=== PATIENT | male | born 1975 | race Caucasian/White ===

== ENCOUNTER 2023-05-27 21:16 | Emergency (ER) | payer MEDICAID, SELFPAY ==
[2023-05-27 21:23] VITALS: BP 168/102; PULSE 91; RESP 18; TEMP 37.1; O2SAT 97; BMI 32.1
[2023-05-27 21:27] VITALS: BP 168/115; O2SAT 98
[2023-05-27 21:29] VITALS: BP 172/117; PULSE 91; RESP 21; O2SAT 97
[2023-05-27 21:30] VITALS: BP 168/113; PULSE 93; RESP 20; O2SAT 98
--- NOTE | 2023-05-27 21:33 | ECG_ITS ---
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
[2023-05-27 21:46] LABS: Basophils Absolute Auto 0.1 10^3/uL (0.0-0.1); Basophils Percent Auto 0.8 % (0.2-2.0); Eosinophils Absolute Auto 0.4 10^3/uL (0.0-0.7); Eosinophils Percent Auto 3.3 % (0.9-7.0); Hematocrit 41.8 % (42.0-54.0); Hemoglobin 14.8 g/dL (14.0-18.0); Immature Granulocytes Abs Auto 0.04 10^3/uL (0.00-0.03); Immature Granulocytes Pct Auto 0.3 % (0.0-0.5); Mean Corpuscular HGB Conc 35.4 g/dL (29.9-35.2); Mean Corpuscular Hemoglobin 30.8 pg (25.9-34.0); Mean Corpuscular Volume 86.9 fL (80.0-94.0); Mean Platelet Volume 10.4 fL (9.5-13.5); Monocytes Absolute Auto 0.9 10^3/uL (0.3-0.8); Monocytes Percent Auto 7.1 % (1.7-12.0); Neutrophils Absolute Auto 7.6 10^3/uL (1.4-6.5); Neutrophils Percent Auto 63.5 % (43.0-75.0); Platelet Count 250 10^3/uL (150-450); Red Blood Count 4.81 10^6/uL (4.70-6.10); Red Cell Distribution Width 13.1 % (11.0-15.0)
--- NOTE | 2023-05-27 21:47 | ED.GENADUL1 ---
HPI - General Adult General Chief complaint: Headache Stated complaint: HEADACHE, HIGH BP Time Seen by Provider: 05/27/23 21:21 Source: patient and family Mode of arrival: walk-in Limitations: no limitations History of Present Illness HPI narrative: Patient presents with pain to the top of the head that began yesterday. He denied any associated symptoms except for some mild nasal congestion which began about a week ago. He took some ibuprofen around 1pm today. He has been off of his meds for high blood pressure for about 6 months, he said. He used to take Lisinopril and a water pill . He said that he stopped on his own because I did not want to take them anymore. No visual changes, ear pain, sore throat, cough, chest pain or shortness of breath. no GI or symptoms. He does not know the doses of his medications. Related Data Home Medications Medication Instructions Recorded Confirmed No Known Home Medications 05/27/23 05/27/23 Allergies Allergy/AdvReac Type Severity Reaction Status Date / Time No Known Drug Allergies Allergy Verified 05/27/23 21:23 [facility] Social History Smoking status: Never smoker Exam Narrative Exam Narrative: Nurses notes and vital signs reviewed and patient is not hypoxic. afebrile General: Well-appearing and in no apparent distress. Skin: Warm, dry, no pallor noted. No rash. Head: Normocephalic, atraumatic. Neck: Supple, non-tender. No cervical lymphadenopathy. No meningismus. Eye: Pupils are equal, round and EOMI. No scleral icterus. Ears, Nose, Mouth, and Throat: TM are clear, no posterior oropharynx erythema or nasal mucosal hypertrophy, uvula is mid-line Oral mucosa is moist Cardiovascular: Regular Rate and Rhythm without murmur, gallop or rub. Respiratory: No accessory muscle use or respiratory distress. Lungs are clear to auscultation, no wheezing, rales or rhonchi Musculoskeletal: normal ROM Neurological: A&O x4. No cranial nerve dysfunction observed. No truncal ataxia. Moves all extremities. Sensation intact. Psychiatric: Cooperative and interactive. Normal mood and affect. Constitutional Vital Signs, click to edit/add: Last Vital Signs Temp 98.7 F 05/27/23 21:23 Pulse 85 05/27/23 22:00 Resp 19 05/27/23 22:00 BP 151/90 H 05/27/23 22:00 Pulse Ox 95 05/27/23 22:00 O2 Del Method Room Air 05/27/23 21:23 Course Vital Signs Vital signs: Vital Signs Temperature 98.7 F 05/27/23 21:23 Pulse Rate 91 H 05/27/23 21:23 Respiratory Rate 18 05/27/23 21:23 Blood Pressure 168/102 H 05/27/23 21:23 Pulse Oximetry 97 05/27/23 21:23 Oxygen Delivery Method Room Air 05/27/23 21:23 Temperature 98.7 F 05/27/23 21:23 Pulse Rate 85 05/27/23 22:00 Respiratory Rate 19 05/27/23 22:00 Blood Pressure 151/90 H 05/27/23 22:00 Pulse Oximetry 95 05/27/23 22:00 Oxygen Delivery Method Room Air 05/27/23 21:23 Medical Decision Making MDM Narrative Medical decision making narrative: Patient was placed on personnel monitor and EKG obtained. Blood drawn and sent for evaluation. He was ordered to receive IV labetalol and IV Vasotec for his hypertension. He does not know the doses of his lisinopril or his water pill -whether it is Lasix or HCTZ. BP improved to 151/90 and his EKG and labs were unremarkable. He was discharged home. He will need to call his primary care physician in [place] to discuss restarting these medications -I am reluctant to prescribe thing for him since I do not know the dose he is supposed be taking. Lab Data Lab results reviewed: Yes I reviewed the patient's lab results Labs: Lab Results 05/27/23 Range/Units 21:39 WBC 12.0 H (4.0-11.0) 10^3/uL RBC 4.81 (4.70-6.10) 10^6/uL Hgb 14.8 (14.0-18.0) g/dL Hct 41.8 L (42.0-54.0) % MCV 86.9 (80.0-94.0) fL MCH 30.8 (25.9-34.0) pg MCHC 35.4 H (29.9-35.2) g/dL RDW 13.1 (11.0-15.0) % Plt Count 250 (150-450) 10^3/uL MPV 10.4 (9.5-13.5) fL Neut % (Auto) 63.5 (43.0-75.0) % Lymph % (Auto) 25.0 (20.5-60.0) % [place] % (Auto) 7.1 (1.7-12.0) % Eos % (Auto) 3.3 (0.9-7.0) % Baso % (Auto) 0.8 (0.2-2.0) % Neut # (Auto) 7.6 H (1.4-6.5) 10^3/uL Lymph # (Auto) 3.0 (1.2-3.8) 10^3/uL [place] # (Auto) 0.9 H (0.3-0.8) 10^3/uL Eos # (Auto) 0.4 (0.0-0.7) 10^3/uL Baso # (Auto) 0.1 (0.0-0.1) 10^3/uL Abs Immat Gran (auto) 0.04 H (0.00-0.03) 10^3/uL Imm/Tot Granulo (auto) 0.3 (0.0-0.5) % Sodium 144 (136-145) mmol/L Potassium 3.5 (3.5-5.1) mmol/L Chloride 108 H (98-107) mmol/L Carbon Dioxide 25.2 (21.0-32.0) mmol/L Anion Gap 14.3 BUN 19.0 H (7.0-18.0) mg/dL Creatinine 0.83 (0.70-1.30) mg/dL Est GFR ( Amer) >60 (>=60) Est GFR (Non-Af Amer) >60 (>=60) BUN/Creatinine Ratio 22.9 Glucose 119 H (74-106) mg/dL Calcium 8.6 (8.5-10.1) mg/dL ECG Data Attestation: I personally reviewed and interpreted this ECG as follows: Interpretation: EKG interpretation: Emergency Department physician interpretation. Normal sinus rhythm at 91bpm. Normal axis, normal intervals and no ST segment elevation or depression. Discharge Plan Discharge Chief Complaint: Headache Clinical Impression: Medical non-compliance, Headache, Hypertension Patient Disposition: Home, Self-Care Time of Disposition Decision: 22:21 Prescriptions / Home Meds: No Action No Known Home Medications Instructions: Acute Headache (ED), Hypertension (ED) Stand Alone Forms: Portal Instructions Referrals: [facility] [Primary Care Provider] - 1 week
[2023-05-27 21:55] VITALS: BP 168/113
[2023-05-27] MEDS: ENALAPRILAT DIHYDRATE 1.25 MG/ML VIAL IV (21:55)
[2023-05-27] MEDS: LABETALOL HCL 20 MG/4 ML SYRINGE IVP (21:55)
[2023-05-27 21:58] LABS: Anion Gap 14.3; BUN Creatinine Ratio 22.9; Calcium 8.6 mg/dL (8.5-10.1); Carbon Dioxide 25.2 mmol/L (21.0-32.0); Chloride 108 mmol/L (98-107); Estimated GFR (African America >60 (>=60); Estimated GFR (Non-African Ame >60 (>=60); Glucose 119 mg/dL (74-106); Potassium 3.5 mmol/L (3.5-5.1); Sodium 144 mmol/L (136-145)
[2023-05-27 22:00] VITALS: BP 151/90; PULSE 85; RESP 19; O2SAT 95
[2023-05-27] MEDS: KETOROLAC TROMETHAMINE 30 MG/ML VIAL IVP (22:02)
== END 2023-05-27 22:34 | disposition home or self-care (01) ==
PROVIDERS: Emergency Provider Emergency Medicine
DX: I10 Essential (primary) hypertension (principal); R51.9 Headache, unspecified; T46.4X6A Underdosing of angiotensin-converting-enzyme inhibitors, initial encounter; Z91.128 Patient's intentional underdosing of medication regimen for other reason
CPT/HCPCS: 36415; 80048; 85025; 93005; 96374; 96375; 99285; J1290; J1885